=== PATIENT | female | born 2000 | race Caucasian/White ===

== ENCOUNTER 2018-08-22 23:30 | Inpatient (IN) | payer MEDICAID ==
[~2018-08-22] VITALS: Ht 172.7 cm; Wt 67.1 kg
--- NOTE | ~2018-08-22 | CN ---
PATIENT NAME:PABLO SEVILLA MEDICAL RECORD: [id number] : 89 LOCATION:[id number] ADMIT DATE: 08/23/18 ACCOUNT: [id number] CONSULTING PHYSICIAN: RICO REID MD REFERRING PHYSICIAN: KRISTAN CHINCHILLA MD DATE OF CONSULTATION: 08/23/2018 PSYCHIATRIC CONSULTATION IDENTIFYING DATA: The patient is 18 years old and is admitted to the hospital secondary to an overdose. CHIEF COMPLAINT: Overdose. HISTORY OF PRESENT ILLNESS: The patient took a handful of lithium tablets. She says she vomited shortly after doing so and she does not have a toxic lithium level. She says she did this because she is hearing voices telling her to kill herself. She states she is still hearing voices telling her to kill herself. She denies drug and alcohol problems, and she denies any thoughts of harming others. MENTAL STATUS EXAMINATION: The patient is awake, alert, and oriented fully. Her mood is flat. Her affect is constricted. Thought processes are circumstantial. Memory, concentration, and abstraction abilities are at least moderately impaired. She denies any intent to harm others, but endorses thoughts of self-harm and command auditory hallucinations as described above. ASSESSMENT: Schizophrenia by history. PLAN: The patient at this time is reporting command hallucinations telling her to hurt herself. She should be confined to an inpatient psychiatric facility once medically stable. She is willing to go on a voluntary basis, and if possible, she would like to stay somewhere in this area since she has had numerous hospitalizations at the facility in [place] and she does not feel it has been helpful. She mentions [facility] by name. TRANSINT:[id number] Voice Confirmation ID: [id number] DOCUMENT ID: [id number] RICO REID MD at [id number] CC: [id number] DICTATION DATE: 08/23/18 1442 LICENSED BONDSMAN: 08/23/18 1459 ADM IN [place] [id number] [place] [address]
[2018-08-23] VITALS (20 sets, daily range): BP systolic 76–107; BP diastolic 38–72; Ht 172.7 cm; Wt 67.1 kg
[2018-08-23 02:16] LABS: BASOPHILS 0.3 % (0-2); EOSINOPHILS 1.7 % (0-7); HEMATOCRIT 31.7 % (36.0-48.0); HEMOGLOBIN 10.4 g/dL (12-16); IMMATURE GRANULOCYTES 0.2 % (0-5); LYMPHOCYTES 44.7 % (15-50); MCH 30.8 pg (26.0-34.0); MCHC 32.8 g/dL (31.0-37.0); MCV 93.8 fL (80.0-100.0); MEAN PLATELET VOLUME 9.8 fL (7.4-10.4); MONOCYTES 10.1 % (2-11); PLATELET COUNT 209 10x3/uL (130-400); RBC 3.38 10x6/uL (4.00-5.40); WBC 6.5 10x3/uL (4.8-10.8)
[2018-08-23 02:33] LABS: ALBUMIN 2.9 g/dL (3.4-5.0); ALKALINE PHOSPHATASE 45 U/L (46-116); ALT (SGPT) 18 U/L (10-68); CALC OSMOLALITY 280 mosm/kg (275-300); CALCIUM 8.1 mg/dL (8.5-10.1); CARBON DIOXIDE 28.7 mmol/L (21.0-32.0); CHLORIDE - SERUM 111 mmol/L (98-107); CREATININE - SERUM 0.8 mg/dL (0.6-1.3); GLUCOSE 84 mg/dL (74-106); POTASSIUM - SERUM 4.2 mmol/L (3.5-5.1); PROTEIN - SERUM 5.8 g/dL (6.4-8.2); SODIUM 142 mmol/L (136-145); UREA NITROGEN 9 mg/dL (7-18); eGFR NON AFRICAN AMERICAN > 90 mL/min (90-120)
[2018-08-24] VITALS (15 sets, daily range): BP systolic 82–109; BP diastolic 43–92
[2018-08-24 04:51] LABS: BASOPHILS 0.3 % (0-2); EOSINOPHILS 1.7 % (0-7); HEMATOCRIT 31.3 % (36.0-48.0); HEMOGLOBIN 10.3 g/dL (12-16); IMMATURE GRANULOCYTES 0.1 % (0-5); LYMPHOCYTES 39.3 % (15-50); MCH 30.4 pg (26.0-34.0); MCHC 32.9 g/dL (31.0-37.0); MCV 92.3 fL (80.0-100.0); MEAN PLATELET VOLUME 10.8 fL (7.4-10.4); MONOCYTES 8.7 % (2-11); NEUTROPHILS 49.9 % (40-80); PLATELET COUNT 239 10x3/uL (130-400); RBC 3.39 10x6/uL (4.00-5.40); RDW 13.7 % (11.5-14.5); WBC 6.9 10x3/uL (4.8-10.8)
[2018-08-24 05:19] LABS: ALKALINE PHOSPHATASE 43 U/L (46-116); ALT (SGPT) 15 U/L (10-68); BILIRUBIN - TOTAL 0.15 mg/dL (0.2-1.3); CALC OSMOLALITY 277 mosm/kg (275-300); CALCIUM 8.3 mg/dL (8.5-10.1); CARBON DIOXIDE 25.4 mmol/L (21.0-32.0); CHLORIDE - SERUM 109 mmol/L (98-107); CREATININE - SERUM 0.7 mg/dL (0.6-1.3); GLUCOSE 89 mg/dL (74-106); PROTEIN - SERUM 5.9 g/dL (6.4-8.2); SODIUM 141 mmol/L (136-145); UREA NITROGEN 7 mg/dL (7-18); eGFR NON AFRICAN AMERICAN > 90 mL/min (90-120)
[2018-08-24 05:20] LABS: POTASSIUM - SERUM 3.4 mmol/L (3.5-5.1)
[2018-08-24 17:53] LABS: HCG SERUM NEGATIVE (NEGATIVE)
== END 2018-08-24 19:21 | disposition short-term general hospital (02) | DRG 918 ==
LOC: D.ICU 23:30
PROVIDERS: Family Medicine; Internal Medicine Nephrology
DX: T43.592A Poisoning by other antipsychotics and neuroleptics, intentional self-harm, initial encounter (principal); F17.200 Nicotine dependence, unspecified, uncomplicated; F20.9 Schizophrenia, unspecified; D64.9 Anemia, unspecified